=== PATIENT | female | born 1955 | race Caucasian/White ===

== ENCOUNTER 2017-03-01 08:04 | Day surgery (SDC) | payer BC ==
[2017-05-06] MEDS ORDERED: Calcium-Mag-Zi1 EACH PO (15:02)
[2017-05-06] MEDS ORDERED: PROBIOTIC1 EAC4 PO (15:03)
[2017-05-06] MEDS ORDERED: Flonase 0.05% N16 GM (15:04)
[2017-05-06] MEDS ORDERED: MAGCHL64ER PO (15:05)
[2017-05-06] MEDS ORDERED: RED YEAST RICE PO (15:05)
[2017-05-06] MEDS ORDERED: NIAC250ER PO (15:06)
== END 2017-03-01 22:54 | disposition home or self-care (01) ==
LOC: MOI MAM 08:04
PROC: 0HBT3ZX Excision of Right Breast, Percutaneous Approach, Diagnostic (ICD-10-PCS; principal; 2017-03-01)
DX: D24.1 Benign neoplasm of right breast (principal); R92.8 Other abnormal and inconclusive findings on diagnostic imaging of breast
CPT/HCPCS: 19083; 77065; 88305; A4648

== ENCOUNTER 2017-05-13 07:42 | Day surgery (SDC) | payer BC ==
[~2017-05-13 07:42] MED LIST: Calcium-Mag-Zi1 EACH PO; Flonase 0.05% N16 GM; MAGCHL64ER PO; NIAC250ER PO; PROBIOTIC1 EAC4 PO; RED YEAST RICE PO
[2017-05-14] MEDS ORDERED: CLARITIN10 MG PO (06:42)
== END 2017-05-13 22:46 | disposition home or self-care (01) ==
LOC: MOI MAM 07:42
PROC: BH40ZZZ Ultrasonography of Right Breast (ICD-10-PCS; principal; 2017-05-13)
DX: R92.8 Other abnormal and inconclusive findings on diagnostic imaging of breast (principal); R93.8 Abnormal findings on diagnostic imaging of other specified body structures
CPT/HCPCS: 19285; 76098; 77065

== ENCOUNTER 2017-05-14 06:08 | Day surgery (SDC) | payer BC ==
[~2017-05-14] VITALS: Ht 170.2 cm; Wt 82.1 kg
[2017-05-14] MEDS ORDERED: CLARITIN10 MG PO (06:42)
== END 2017-05-14 23:06 | disposition home or self-care (01) ==
LOC: ORSCMMR 06:08 → ORD 07:30 → ORSCMMR 23:06
PROVIDERS: Surgery
PROC: 0HBT0ZX Excision of Right Breast, Open Approach, Diagnostic (ICD-10-PCS; principal; 2017-05-14 07:30)
DX: C50.411 Malignant neoplasm of upper-outer quadrant of right female breast (principal); R92.8 Other abnormal and inconclusive findings on diagnostic imaging of breast; R93.8 Abnormal findings on diagnostic imaging of other specified body structures; Z79.899 Other long term (current) drug therapy
CPT/HCPCS: 88307; J0690; J1100; J2250; J2405; J3010; J7120

== ENCOUNTER → 2017-07-28 | Outpatient (CLI) | payer BC ==
[~2017-07-28] MED LIST changes: +CLARITIN10 MG PO
== END ==
LOC: LAB SHORT 11:37 → LAB 11:37
PROVIDERS: Nurse Practitioner Obstetrics & Gynecology
DX: Z01.419 Encounter for gynecological examination (general) (routine) without abnormal findings (principal)
CPT/HCPCS: 87624; G0123